=== PATIENT | male | born 1950 | race Caucasian/White ===

== ENCOUNTER 2018-08-25 12:10 | Day surgery (SDC) | payer MEDICARE, OTHER ==
[~2018-08-25] VITALS: Ht 177.8 cm; Wt 66.7 kg
--- NOTE | ~2018-08-25 | OR ---
[facility] [address] [place], [place] [address] Draft DATE OF OPERATION: 08/25/2018 SURGEON: Jacky Grande MD PREOPERATIVE DIAGNOSIS: Colon screening (surveillance). POSTOPERATIVE DIAGNOSIS: Normal colon to cecum. PROCEDURE PERFORMED: Total colonoscopy to cecum. ANESTHESIA: Intravenous sedation, fentanyl 100 mcg, Versed 4 mg. INDICATION: This 68-year-old white man is a patient of Sharon Morales PA-C, who underwent colonoscopy greater than [address] Ruben Singh, which was said to be normal. He is symptom free currently and has no family history of colon cancer. He is here for colonoscopy understanding well the risks of bleeding, infection, and perforation and wishes to proceed. FINDINGS: The prep was excellent. Complete colonoscopy was undertaken of the cecum without question. There was no sign of polyps or colitis or obvious diverticular formations on this evaluation. DESCRIPTION OF PROCEDURE: The patient was brought to the endoscopy suite and placed in lateral decubitus position, given intravenous sedation to the point of slurred speech and nystagmus. Digital rectal examination was normal. An Olympus video colonoscope was passed in the rectum and manipulated throughout the colon ultimately intubating the cecum itself. The ileocecal valve and appendiceal orifice were normal. The scope was withdrawn from that point and examination throughout showed no sign of abnormality. Retroflexed view of the rectum was normal as well. The scope was removed and the patient was taken to recovery room in good condition. CONCLUDING DIAGNOSIS: Normal colon to cecum. PATIENT NAME: LEON COOPER OPERATIVE REPORT DATE OF : 46 REPORT #: [id number] PHYSICIAN: JACKY GRANDE MD PCP: SHARON MORALES PA-C REPORT IS CONFIDENTIAL AND NOT TO BE RELEASED WITHOUT AUTHORIZATION [address] [place], [place] [address] Draft PLAN: Recommend repeat colonoscopy in 10 years if clinically appropriate, sooner if there are symptoms. He will return to the ongoing care of Sharon Morales PA-C. MD CHIOMA Kwan/VI /[id number] cc: Sharon Morales PA-C Copies: SHARON MORALES PA-C ~ PATIENT NAME: LEON COOPER OPERATIVE REPORT DATE OF : 46 REPORT #: [id number] PHYSICIAN: JACKY GRANDE MD PCP: SHARON MORALES PA-C REPORT IS CONFIDENTIAL AND NOT TO BE RELEASED WITHOUT AUTHORIZATION
[~2018-08-25 12:10] MED LIST: ATENOLOL50 MG; BUSPIRONE HCL15 MG; BUSPIRONE HCL5 MG PO; CALCIUM CARBON500 MG PO; CARBAMAZEPINE200 MG PO; CHLORDIAZEPOXID10 MG PO; FENOFIBRATE145 MG PO; LISINOPRIL20 MG PO; LUBRICANT EYE D15 ML OU; MAGNESIUM400 MG PO; MULTI-DAY VITA1 EACH PO; TENORMIN25 MG PO; THIAMINE HCL100 MG PO; VITAMIN D1000 UNI1 PO; VITAMIN D350000 UNIT PO
--- NOTE | 2018-08-25 13:46 | NUR ---
08/25/18 1346 Sheets,Chiquita 1339 PT ARRIVED TO PACU ON 3L NC, PT AWAKE AND TALKING TO RN. PT DENIES PAIN AND NAUSEA. RESP EVEN AND UNLABORED.
== END 2018-08-25 14:10 | disposition home or self-care (01) ==
LOC: OPS 12:10 → DS 13:00 → OPS 13:00
PROVIDERS: Surgery
PROC: 0DJD8ZZ Inspection of Lower Intestinal Tract, Via Natural or Artificial Opening Endoscopic (ICD-10-PCS; principal; 2018-08-25 13:00)
DX: Z12.11 Encounter for screening for malignant neoplasm of colon (principal); E78.00 Pure hypercholesterolemia, unspecified; F17.210 Nicotine dependence, cigarettes, uncomplicated; I10 Essential (primary) hypertension
CPT/HCPCS: G0121; 99153; G0500; J2250; J3010

== ENCOUNTER 2023-11-12 21:01 | Observation (INO) | payer OTHER ==
[~2023-11-12] VITALS: Ht 177.8 cm; Wt 67.0 kg
[~2023-11-12 21:01] MED LIST changes: -VITAMIN D1000 UNI1 PO; +VITAMIN D350 MC3 PO
[2023-11-12] MEDS ORDERED: LACTATED RINGER'S 1,000 ML IV ONE (21:15)
[2023-11-12 21:19] LABS: HEMATOCRIT 43.8 % (35.0-50.0); HEMOGLOBIN 15.2 g/dL (12.0-18.0); MCH 34.1 (27-36); MCHC 34.7 g/dl (30-36); MCV 98.3 fl (81-99); PLATELET COUNT 155 K/uL (140-440); RBC 4.46 M/ul (4.3-5.7); RDW 14.8 (10.5-15.0)
[2023-11-12] MEDS ORDERED: ondansetron HCL 4 MG/2 ML VIAL IV ONE (21:30)
[2023-11-12] MEDS ORDERED: FAMOTIDINE 20 MG/ 2 ML VIAL IV ONE (21:30)
[2023-11-12 21:42] LABS: ALBUMIN 4.3 g/dL (3.4-5.0); ALBUMIN/GLOBULIN RATIO 0.91 (1.1-2.4); ANION GAP 19.4 (7-21); BILIRUBIN, TOTAL 1.6 ng/dL (0.2-1.0); BUN/CREATININE RATIO 23.17 (6.0-28.6); CALCIUM 9.7 mg/dL (8.5-10.1); CREATININE, SERUM 2.33 mg/dL (0.70-1.30); LYMPHOCYTES, MANUAL DIFF 5; MAGNESIUM 1.4 mg/dL (1.8-2.4); MONOCYTES, MANUAL DIFF 7; NEUTROPHILS, MANUAL DIFF 88; POTASSIUM 3.4 mmol/L (3.5-5.1)
[2023-11-12 21:48] LABS: BILIRUBIN, URINE POSITIVE (negative); BLOOD/HGB, URINE LARGE (Negative); KETONE, URINE SMALL (Negative); LEUK ESTERASE, URINE NEGATIVE (negative); NITRITE, URINE NEGATIVE (negative)
[2023-11-12 21:59] LABS: EPITHELIAL CELLS, URINE SQUAMOUS 1+ /lpf (0-1+)
[2023-11-12 22:01] LABS: BACTERIA, URINE 1+ /hpf (negative); CASTS, URINE HYALINE 2+ \\lpf; COLLECTION TYPE, URINE CLEAN CATCH; CRYSTALS, URINE NONE SEEN (0-1+); REFLEX CULTURE, URINE No (No)
[2023-11-12 22:09] LABS: AMPHETAMINES, URINE NEGATIVE (NEGATIVE); BARBITURATES, URINE NEGATIVE (NEGATIVE); BENZODIAZEPINE, URINE NEGATIVE (NEGATIVE); BUPRENORPHINE, URINE NEGATIVE (NEGATIVE); CANNABINOID, URINE NEGATIVE (NEGATIVE); COCAINE, URINE NEGATIVE (NEGATIVE); ECSTASY, URINE NEGATIVE (NEGATIVE); FENTANYL, URINE NEGATIVE (NEGATIVE); METHADONE, URINE NEGATIVE (NEGATIVE); OPIATES, URINE NEGATIVE (NEGATIVE); OXYCODONE, URINE NEGATIVE (NEGATIVE); PHENCYCLIDINE, URINE NEGATIVE (NEGATIVE)
[2023-11-12] MEDS ORDERED: FOLIC ACID 1 MG/0.2 ML ML ONE (22:10)
[2023-11-12] MEDS ORDERED: MULTIVITAMINS 10 ML,FOLIC ACID 1 MG,THIAMINE HCL 100 MG in SODIUM CHLORIDE 0.9% 1,000 ML IV ONE (22:15)
[2023-11-12] MEDS ORDERED: MAGNESIUM SULFATE 2 GM/50 ML BAG IV ONE (23:45)
[2023-11-12 23:46] LABS: LACTIC ACID, BLOOD 2.5 mmol/L (0.4-2.0)
[2023-11-13] VITALS (19 sets, daily range): BP systolic 92–150; BP diastolic 46–83
[2023-11-13 01:26] LABS: LACTIC ACID, BLOOD 1.3 mmol/L (0.4-2.0)
[2023-11-13] MEDS ORDERED: LACTATED RINGER'S 1,000 ML IV ONE (01:30)
[2023-11-13] MEDS ORDERED: ondansetron HCL 4 MG/2 ML VIAL IV ONE (01:30)
[2023-11-13] MEDS ORDERED: LORazepam 2 MG/ML VIAL IV ONE (01:45)
[2023-11-13] MEDS ORDERED: TUBERCULIN PPD 5 UNITS/0.1 ML VIAL SUB-Q SCH (01:45)
[2023-11-13] MEDS ORDERED: LACTATED RINGER'S 1,000 ML IV SCH ×2 (01:45→15:45)
[2023-11-13] MEDS ORDERED: ondansetron HCL 4 MG/2 ML VIAL IV PRN (01:45)
[2023-11-13] MEDS ORDERED: LORazepam 1 MG TAB PO PRN (01:45)
[2023-11-13] MEDS ORDERED: LORazepam 2 MG/ML VIAL IV/IM PRN (01:45)
[2023-11-13] MEDS ORDERED: LORazepam 1 MG TAB PO SCH (02:00)
[2023-11-13] MEDS ORDERED: LORazepam 2 MG/ML VIAL IV SCH (02:00)
--- NOTE | 2023-11-13 02:45 | NUR ---
Patient arrives to CCU via stretcher, able to transfer self to bed. Afebrile, VSS, CIWA 2. Patient drowsy. Able to complete hx and assessment. Patient states "would like everything done" when asked specifically about compressions/intubation in a code situation. States current smoker. Reports no pain or needs at this time. Oriented to room/unit and call light. Will continue plan of care.
--- NOTE | 2023-11-13 03:02 | NUR ---
No clinical indication to administer scheduled ativan at this time. Patient CIWA score 2 for very mild tremors once woken from sleep. Patient not agitated and oriented x4. Notified Dr Bryson and agreement to use CIWA protocol and PRN ativan for CIWA >8 per MAR if needed.
--- NOTE | 2023-11-13 04:15 | NUR ---
Rounded on patient who is resting in bed with eyes closed, even and unlabored respirations. VSS on RA. No needs identified at this time. Call light in reach.
--- NOTE | 2023-11-13 06:15 | NUR ---
Rounded on patient who is resting in bed, arousable to voice, alert and oriented. Afebrile, VSS on RA. IVF infusing WNL. CIWA 3- Patient states no nausea or headache, no auditory/visual disturbances, no diaphoresis. Mild visible tremors only scoring criteria. Ativan held at this time. Patient states "I am feeling pretty good right now". Call light in reach.
[2023-11-13 06:56] LABS: HEMATOCRIT 43.5 % (35.0-50.0); HEMOGLOBIN 15.3 g/dL (12.0-18.0); MCH 34.3 (27-36); MCV 97.8 fl (81-99); PLATELET COUNT 177 K/uL (140-440); RBC 4.45 M/ul (4.3-5.7); RDW 14.4 (10.5-15.0)
[2023-11-13 07:11] LABS: ALBUMIN/GLOBULIN RATIO 0.88 (1.1-2.4); ANION GAP 11.6 (7-21); BILIRUBIN, TOTAL 1.2 ng/dL (0.2-1.0); BUN/CREATININE RATIO 30.65 (6.0-28.6); CALCIUM 8.1 mg/dL (8.5-10.1); CREATININE, SERUM 1.37 mg/dL (0.70-1.30); MAGNESIUM 1.8 mg/dL (1.8-2.4); POTASSIUM 3.6 mmol/L (3.5-5.1); PROTEIN, TOTAL 6.4 g/dL (6.4-8.2)
[2023-11-13 07:17] LABS: BANDS, MANUAL DIFF 19; BASOPHILS, MANUAL DIFF 0; EOSINOPHILS, MANUAL DIFF 0; LYMPHOCYTES, MANUAL DIFF 11; MONOCYTES, MANUAL DIFF 5; NEUTROPHILS, MANUAL DIFF 65
--- NOTE | 2023-11-13 08:20 | NUR ---
PATIENT IS ALERT AND ORIENTED AT THIS TIME. PATIENT STOOD UP AND ABLE TO VOID 600 ML WITH THE URINAL. VITAL SIGNS TAKEN AND DOCUMENTED IN THE CHART. PATIENT AMBULATED TO THE CHAIR AND ATE A LITTLE BIT OF HIS CLEAR LIQUID DIET TRAY AND REQUESTING TO GO BACK TO BED. PATIENT STATED "WANTING TO EAT SLOW". PATIENT AMBULATED BACK TO THE BED WITH ONE PERSON ASSIST. TWO WARM BLANKETS GIVEN TO THE PATIENT. CIWA COMPLETE AND THE PATIENT HAS A SCORE OF 3 DUE TO MILD TREMORS. PATIENT STATED NO FURTHER NEEDS AT THIS TIME. CALL LIGHT AND BREAKFAST TRAY REMAIN WITHIN REACH.
--- NOTE | 2023-11-13 08:56 | NUR ---
DR. ULLOA IN ROOM TO SEE PATIENT. PLAN OF CARE BEING DISCUSSED.
[2023-11-13] MEDS ORDERED: FAMOTIDINE 20 MG/ 2 ML VIAL IV SCH (09:00)
[2023-11-13] MEDS ORDERED: BENZONATATE 100 MG CAP PO PRN (09:15)
[2023-11-13] MEDS ORDERED: FLUTICASONE PROPIONATE 50 MCG BTL NAS SCH (09:15)
--- NOTE | 2023-11-13 09:29 | NUR ---
RT COMPLETED NASAL SWAB AT THIS TIME. IV DISCONNECTED DUE TO PATIENT BEGINNING TO WORK WITH PHYSICAL THERAPY. PATIENT STATED NO NEEDS AT THIS TIME. CALL LIGHT WITHIN REACH.
--- NOTE | 2023-11-13 09:48 | NUR ---
UR CLINICAL REVIEW: [facility]- [facility] OBS CRITERIA FOR GASTRITIS AND DUODENTITIS WPS CLIFF LOCATED WITHIN [facility] OBS 11/13/23 @ 0144 ORDER MATCHES STATUS AUTH PENDING CLINICAL REVIEW. WILL SEND CLINICALS TODAY. PLAN TO DC TO HOME WHEN STABLE. 11/14/23
--- NOTE | 2023-11-13 09:49 | NUR ---
PATIENT IS LYING ON THEIR LEFT SIDE WITH EYES CLOSED AND RESPIRATIONS ARE EVEN AND UNLABORED. LR IS INFUSING AT 125 ML/HR. CALL LIGHT AND PERSONAL BELONGINGS ARE WITHIN REACH.
--- NOTE | 2023-11-13 10:07 | NUR ---
PATIENT IS SPEAKING WITH CASE MANAGEMENT AT THIS TIME.
[2023-11-13 10:10] LABS: INFLUENZA B NAA NEGATIVE (NEGATIVE); RESPIRATORY SYNCYTIAL VIR NAA NEGATIVE (NEGATIVE)
[2023-11-13] MEDS ORDERED: atenoloL 25 MG TAB PO SCH (10:24)
[2023-11-13] MEDS ORDERED: FENOFIBRATE,MICRONIZED 145 MG TAB PO SCH (10:25)
[2023-11-13] MEDS ORDERED: lisinopriL 20 MG TAB PO SCH (10:25)
--- NOTE | 2023-11-13 10:30 | NUR ---
Spoke with Surendra. He states he lives alone in a one story home. Home has one step. He is active, drives, and does not use any DME. He has a house keeper clean his home 2 x a month. He does he own grocery shopping, cooking, light cleaning. He denies any financial issues. PCP is listed as Sharon Morales, but pt denies ever seeing her. His PCP is through the [facility]. He is unable to remember the name of the pcp. Pt is 50% service connected. We discussed his alcohol use and resources through the [facility] and in town. Pt declines the [facility] and [facility]. Does not feel it is needed now. His daughter lives in [place] and will assist him if needed. She brought him to the hospital and will transport him home. Pt denies any needs for discharge and plans on dc to his home.
--- NOTE | 2023-11-13 10:40 | NUR ---
VISITED SPIRITUAL CARE ROUNDS. PT APPEARED TO BE SLEEPING. DID NOT DISTURB. PROVIDED PRAYER.
--- NOTE | 2023-11-13 10:51 | NUR ---
0900 AND 1000 MEDICATIONS ADMINISTERED PER THE EMAR. PATIENT WITH NO COMPLAINTS OF PAIN AT THIS TIME. PATIENT IS LYING IN BED AND WITH NO NEEDS AT THIS TIME. CALL LIGHT AND PERSONAL BELONGINGS ARE WITHIN REACH.
[2023-11-13] MEDS ORDERED: HEParin SOD (PORCINE) 1,000 UNITS/ML VIAL SUB-Q SCH (11:00)
[2023-11-13] MEDS ORDERED: HEParin SOD (PORCINE) 5,000 UNIT/0.5 ML SYR SUB-Q SCH (11:45)
--- NOTE | 2023-11-13 12:13 | NUR ---
1145 HEPARIN ADMINISTERED PER THE EMAR. PATIENT TOLERATED WELL. VITAL SIGNS TAKEN AND DOCUMENTED IN THE CHART. ASSESSMENT COMPLETE. PATIENT WITH NO COMPLAINTS OF PAIN, NAUSEA, OR NUMBNESS AND TINGLING. SENSATION INTACT. PATIENT IS ALERT AND ORIENTED. LUNG SOUNDS ARE CLEAR IN ALL LUNG HUIZAR BILATERALLY AND THE PATIENT IS ON ROOM AIR. CARDIAC WITH NORMAL S1 AND S2 ON AUSCULTATION. PATIENT IS ON A HEART MONITOR AT THIS TIME. RADIAL PULSES ARE STRONG BILATERALLY. BOWEL TONES ARE ACTIVE IN ALL FOUR QUADRANTS. IV SITE FLUSHED WITH 10 ML NORMAL SALINE AND LR IS INFUSING AT 125 ML/HR. IV DRESSING IS CLEAN, DRY, AND INTACT. MILD TREMORS NOTED IN THE BILATERAL UPPER EXTREMITIES. CIWA SCORE OF 3. PATIENT TO GET A REGULAR LUNCH TRAY. PATIENT IS LYING IN BED WITH THE HOB ELEVATED AND WITH NO NEEDS AT THIS TIME. CALL LIGHT AND PERSONAL BELONGINGS ARE WITHIN REACH.
--- NOTE | 2023-11-13 13:01 | NUR ---
PATIENT IS LYING IN BED WITH EYES CLOSED AND THE TV ON. RESPIRATIONS ARE EVEN AND UNLABORED. IV WITH LR INFUSING AT 125 ML/HR. CALL LIGHT AND PERSONAL BELONGINGS ARE WITHIN REACH.
--- NOTE | 2023-11-13 14:05 | NUR ---
PATIENT IS LYING ON THEIR LEFT SIDE WITH EYES CLOSED AND RESPIRATIONS ARE EVEN AND UNLABORED. CALL LIGHT AND PERSONAL BELONGINGS ARE WITHIN REACH.
[2023-11-13] MEDS ORDERED: LACTATED RINGER'S 500 ML IV ONE (14:45)
[2023-11-13] MEDS ORDERED: carBAMazepine 200 MG TAB PO SCH (15:00)
--- NOTE | 2023-11-13 15:09 | EKG ---
[facility] [address] [facility] [place], [place] [address] Signed Normal sinus rhythm Normal ECG No previous ECGs available Confirmed by Aris Bryson ([id number]) on 11/13/2023 3:09:32 PM Electronically Signed By: ARIS BRYSON MD 11/13/23 1509 PATIENT NAME: LEON COOPER PORTILLO Electrocardiogram DATE OF : 46 PHYSICIAN: ARIS BRYSON MD REPORT #: [id number] REPORT IS CONFIDENTIAL AND NOT TO BE RELEASED WITHOUT AUTHORIZATION
--- NOTE | 2023-11-13 15:35 | NUR ---
VITAL SIGN TAKEN AND DOCUMENTED IN THE CHART. CIWA COMPLETE AND THE PATIENT SCORED A 3 DUE TO MILD TREMORS. FULL ASSESSMENT COMPLETE AND DOCUMENTED IN THE CHART. PATIENT IS ALERT AND ORIENTED. LUNG SOUNDS ARE CLEAR IN ALL LUNG HUIZAR AT THE PATIENT IS ON ROOM AIR. CARDIAC WITH NORMAL S1 AND S2 ON AUSCULTATION. RADIAL PULSES ARE STRONG BILATERALLY. IV SITE IN THE LEFT FOREARM IS CLEAN, DRY, AND INTACT. LR BOLUS COMPLETE AND THE MAINTENANCE FLUIDS ARE INFUSING AT 125 ML/HR. BOWEL TONES ARE ACTIVE IN ALL FOUR QUADRANTS. SENSATION INTACT WITH NO COMPLAINTS OF NUMBNESS AND TINGLING. PATIENT WITH NO COMPLAINTS OF NAUSEA OR PAIN WELL. SCABS NOTED ON THE PATIENTS HEAD. SCATTERED SCARS NOTED. PATIENT STATED NO FURTHER NEEDS AT THIS TIME. CALL LIGHT AND PERSONAL BELONGINGS ARE WITHIN REACH.
--- NOTE | 2023-11-13 16:07 | NUR ---
IV IN THE LEFT FOREARM REMOVED DUE TO INFILTRATION. CATHETER TIP INTACT AND PATIENT TOLERATED WELL. NEW IV SITE INSERTED IN THE LEFT FOREARM BY DONNELL ABRAHAM. PATIENT BED IS NOW FACING THE WINDOW AND WITH NO COMPLAINTS OF PAIN. PATIENT STATED NO FURTHER NEEDS AT THIS TIME. CALL LIGHT AND PERSONAL BELONGINGS ARE WITHIN REACH.
[2023-11-13] MEDS ORDERED: MAGNESIUM SULFATE 2 GM/50 ML BAG IV ONE (16:15)
--- NOTE | 2023-11-13 17:11 | NUR ---
PATIENT IS LYING IN BED WITH EYES CLOSED AND RESPIRATIONS ARE EVEN AND UNLABORED. PATIENT IS LYING ON THEIR LEFT SIDE. MAGNESIUM SULFATE IS INFUSING AT 50 ML/HR AND IS ALMOST FINISHED. CALL LIGHT AND PERSONAL BELONGINGS ARE WITHIN REACH.
--- NOTE | 2023-11-13 17:33 | NUR ---
PATIENT IS SITTING UPRIGHT IN BED AT THIS TIME. DINNER TRAY IS SET UP IN FROM OF THE PATIENT. MAGNESIUM SULFATE INFUSION COMPLETE. LR IS INFUSING AT 125 ML/HR. PATIENT STATED NO FURTHER NEEDS AT THIS TIME. CALL LIGHT AND PERSONAL BELONGINGS ARE WITHIN REACH.
--- NOTE | 2023-11-13 18:27 | NUR ---
PATIENT IS LYING IN BED WITH THE HOB ELEVATED. PATIENT ATE 0% OF DINNER AND TOOK IN 350 ML FLUIDS. PATIENT ABLE TO VOID 225 ML OF CONCENTRATED ORANGE URINE. IV INTAKE WAS 1796.05. PATIENT STATED NO FURTHER NEEDS AT THIS TIME. CALL LIGHT AND PERSONAL BELONGINGS ARE WITHIN REACH.
--- NOTE | 2023-11-13 19:30 | NUR ---
REPORT RECEIVED FROM MURALI JACOBO. PT IS RESTING IN BED WITH EYES CLOSED, RESP EVEN AND UNLABORED, SURGICAL TECHNICIAN IN PLACE, SPO2 96% ON ROOM AIR, HR SINUS 60'S.
--- NOTE | 2023-11-13 20:42 | NUR ---
IN TO SEE PT AND DO ASSESSMENT, PT UP TO USE URINAL. NO COMPLAINTS AT THIS TIME, BACK TO SLEEP.
[2023-11-14] VITALS: BP 147/61
--- NOTE | 2023-11-14 01:45 | NUR ---
PT CALLS FOR HELP TO BATHROOM FOR BOWEL MOVEMENT, BACK TO BED. NO FURTHER NEEDS. BED ALARM ON.
[2023-11-14 04:00] VITALS: BP 128/105
--- NOTE | 2023-11-14 05:29 | NUR ---
PT AWAKE IN BED, LAB IN TO DRAW, COFFEE GIVEN PER REQUEST.
[2023-11-14 05:31] LABS: BASOPHILS 0.4 % (0-2); EOSINOPHILS 0.2 % (0-6); HEMATOCRIT 32.2 % (35.0-50.0); HEMOGLOBIN 11.3 g/dL (12.0-18.0); LYMPHOCYTES 28.4 % (24-44); MCH 34.7 (27-36); MCHC 35.2 g/dl (30-36); MCV 98.7 fl (81-99); MONOCYTES 12.9 % (0-12); NEUTROPHILS 58.1 % (39-80); PLATELET COUNT 111 K/uL (140-440); RBC 3.26 M/ul (4.3-5.7)
[2023-11-14 05:49] LABS: ALBUMIN/GLOBULIN RATIO 0.94 (1.1-2.4); ANION GAP 10.8 (7-21); BUN/CREATININE RATIO 21.84 (6.0-28.6); CALCIUM 8.1 mg/dL (8.5-10.1); CREATININE, SERUM 1.19 mg/dL (0.70-1.30); MAGNESIUM 2.1 mg/dL (1.8-2.4); POTASSIUM 3.8 mmol/L (3.5-5.1); PROTEIN, TOTAL 6.2 g/dL (6.4-8.2)
[2023-11-14 08:02] VITALS: BP 162/63
--- NOTE | 2023-11-14 08:11 | NUR ---
DR. ULLOA IN ROOM TO SEE PATIENT AND PLAN OF CARE BEING DISCUSSED. PATIENT TO BE D/C [place] AM. PT HAS NOT NEEDED ANY PRN MEDICATIONS FOR HIS ETOH W/D. PT WILL CALL HIS DAUGHTER THIS AM AND SHE WILL PICK HIM UP. IVF SALINE LOCKED. PATIENT UP IN JOSE, STEADY ON FEET. PT NOW OFF GAS PRODUCER. PT UP TO CHAIR FOR BREAKFAST. PT DENIES PAIN. WILL CONTINUE TO MONITOR.
[2023-11-14 08:29] VITALS: BP 162/63
--- NOTE | 2023-11-14 10:30 | NUR ---
PATIENT RETURNS FROM MRI AND TRANSFERRED BACK TO CCU BED, BACK ON KNUCKLE STRAP SEWER. ATTENDS CHECKED AND ARE CLEAN CURRENTLY. IVF CONTINUE AT 125 ML/HR WELL IV POTASSIUM. DAPTO GIVEN PER EMAR.
[2023-11-14] MEDS ORDERED: ADULT ASPIRIN R81 MG PO (12:41)
[2023-11-14] MEDS ORDERED: VENTOLIN HFA18 GM INH (12:41)
[2023-11-14] MEDS ORDERED: LIPITOR20 MG PO (12:42)
[2023-11-14] MEDS ORDERED: [UNRECOGNIZED DRUG - OTHER] TOP (12:46)
[2023-11-14] MEDS ORDERED: XALATAN2.5 ML OU (12:48)
[2023-11-14] MEDS ORDERED: NEURONTIN100 MG PO (12:48)
[2023-11-14] MEDS ORDERED: SPIRIVA RESPIMAT4 G1 INH (12:49)
--- NOTE | 2023-11-14 12:51 | NUR ---
MED REC COMPLETE
== END 2023-11-14 10:55 | disposition home or self-care (01) ==
LOC: ED 21:01 → CCU 21:03
PROVIDERS: Internal Medicine; ADMIT Family Medicine; ATTEND Family Medicine
DX: F10.139 Alcohol abuse with withdrawal, unspecified (principal); R53.1 Weakness; R25.1 Tremor, unspecified; N17.9 Acute kidney failure, unspecified; K29.70 Gastritis, unspecified, without bleeding; G50.0 Trigeminal neuralgia; D72.829 Elevated white blood cell count, unspecified; E87.20 Acidosis, unspecified; I10 Essential (primary) hypertension; E86.0 Dehydration; F17.200 Nicotine dependence, unspecified, uncomplicated
CPT/HCPCS: 36415; 71045; 74176; 80053; 80307; 81001; 83036; 83605; 83690; 83735; 84100; 84484; 85025; 87040; 87502; 93005; 93010; 96361; 96365; 96367; 96372; 96375; 96376; 97161; 99285-25; G0378; G0480; J1644; J2060; J2405; J3411; J3475; J7030; J7121; U0002